=== PATIENT | female | born 1960 | race African-American/Black ===

== ENCOUNTER 2016-10-01 15:32 | Emergency (ER) | payer OTHER ==
--- NOTE | ~2016-10-01 | EKG ---
PATIENT: MAYTE BLANCAS UNIT #: [id number] Ventricular Rate: 76 BPM Atrial Rate: 76 BPM P-R Interval: 138 ms QRS Duration: 76 ms Q-T Interval: 404 ms QTC Calculation(Bezet): 454 ms P Nesbit: 30 degrees Calculated R Nesbit: -11 degrees Calculated T Nesbit: 8 degrees Diagnosis Line: Normal sinus rhythm Diagnosis Line: Normal ECG Diagnosis Line: When compared with ECG of 26-OCT-2012 19:48, Diagnosis Line: No significant change was found Diagnosis Line: Confirmed by JON CORTEZ MD ([id number]) on 10/03/2016 Diagnosis Line: 4:03:58 PM INTERPRETING MD: DANA DUNN
--- NOTE | ~2016-10-01 | CR72 ---
[facility] A Service of [facility] RADIOLOGY TEXT RESULTS PATIENT: MAYTE BLANCAS LOCATION: [facility] : 62 UNIT #: [id number] AGE: [address]: Adele Woodward MD SEX: F ORDER DR: [id number] [facility] [address] [place], [place] [address] [id number] E MR#: [id number] Acc #: [id number] NAME: MAYTE BLANCAS : 1960 SEX: F STUDY DATE/TIME: 10/01/2016 15:19 UNIT: [facility] ROOM: STUDY DESCRIPTION: CR Chest Single View Portable Attending Physician: Adele Woodward M.D. Ordering Physician: Adele Woodward M.D. Primary Care Physician: [facility] MEDICAL IMAGING REPORT This report is preliminary unless electronic signature is present EXAM Portable chest 10/01/2016 HISTORY Chest pain and right arm pain beginning one day ago. Benign essential hypertension and diabetes. Smoking history. FINDINGS A single AP portable view of the chest shows both lungs to be clear. The heart is normal in size. The mediastinal contour is normal. No significant bone abnormalities are seen. IMPRESSION Normal portable chest. Dictated by... Boogie Tellez M.D. THIS IS AN ELECTRONICALLY VERIFIED REPORT Boogie Tellez M.D. at 10/02/2016 3:05 PM KRT/to TD: 10/01/2016 22:51 JOB #: [id number] MEDICAL IMAGING REPORT Page 1 of 1 COPY
[~2016-10-01 15:32] MED LIST: FIORICET 50-321 EACH PO; GLIPIZIDE10 MG PO; HYDROXYZINE HCL25 M1 PO; METFORMIN PO; PHENERGAN25 M1 PO; PHENERGAN25 MG PO; PROTONIX PO; VERAPAMIL ER240 MG PO; VICODIN 5/1 TAB 5/50 PO; ZESTRIL40 MG PO; ZOFRAN ODT4 MG PO
[2016-10-01 15:47] LABS: BASOPHIL% 0.8 % (0-2.5); EOSINOPHIL# 0.2 X10e3 (0-0.7); EOSINOPHIL% 4.5 % (0.0-7.0); HEMATOCRIT 35.3 % (35.0-45.0); HEMOGLOBIN 11.3 gm/dL (12.0-16.0); LYMPHOCYTE# 1.9 X10e3 (1.0-3.5); LYMPHOCYTE% 37.8 % (17.0-45.0); MEAN CELL VOLUME 88.3 FL (83-96); MEAN CORPUSCULAR HEMOGLOBIN 28.3 PG (28-34); MEAN PLATELET VOLUME 8.3 FL (6.5-11.5); MONOCYTE# 0.3 X10e3 (0-1.0); MONOCYTE% 6.6 % (3.0-12.0); NEUTROPHIL# 2.5 X10e3 (1.5-7.1); NEUTROPHIL% 50.3 % (40-75); PLATELET COUNT 307 X10e3 (140-420); RED CELL DISTRIBUTION WIDTH 13.7 % (11.0-15.5)
[2016-10-01 15:54] LABS: DIFF IND NO
[2016-10-01 16:03] LABS: POC - CKMB 4.5 ng/mL (0.0-7.9); POC - TROPONIN <0.05 ng/mL (<=0.05)
[2016-10-01 16:08] LABS: ALBUMIN SERUM 3.8 g/dL (3.5-5.0); ALKALINE PHOSPHATASE 86 U/L (32-92); ALT (SGPT) 14 U/L (10-40); AST (SGOT) 19 U/L (10-42); BILIRUBIN,TOTAL 0.1 mg/dL (0.2-2.0); BLOOD UREA NITROGEN 14 mg/dL (9-23); CALCIUM SERUM 9.4 mg/dL (8.4-10.2); CARBON DIOXIDE 23 mmol/L (22-31); CHLORIDE 107 mmol/L (100-111); CREATININE SERUM 1.4 mg/dL (0.6-1.4); GLOM FILT RATE Estimated 48.9 mL/min (>60); GLUCOSE FASTING 58 mg/dL (70-110); POTASSIUM 3.9 mmol/L (3.5-5.1); PROTEIN TOTAL SERUM 7.6 g/dL (6.0-8.3); SODIUM 140 mmol/L (135-145)
[2016-10-01 16:09] LABS: BILIRUBIN, DIRECT <0.1 mg/dL (0.0-0.2)
[2016-10-01 17:58] LABS: POC - CKMB 4.1 ng/mL (0.0-7.9); POC - TROPONIN <0.05 ng/mL (<=0.05)
== END 2016-10-01 18:49 | disposition home or self-care (01) ==
LOC: CED 15:32
PROVIDERS: Student in an Organized Health Care Education/Training Program
DX: S46.911A Strain of unspecified muscle, fascia and tendon at shoulder and upper arm level, right arm, initial encounter (principal); E78.5 Hyperlipidemia, unspecified; I10 Essential (primary) hypertension; E11.9 Type 2 diabetes mellitus without complications; F17.200 Nicotine dependence, unspecified, uncomplicated; Z88.5 Allergy status to narcotic agent; X58.XXXA Exposure to other specified factors, initial encounter; Y92.9 Unspecified place or not applicable
CPT/HCPCS: 71010; 80048; 80076; 82553; 84484; 85025; 93005; 99284